=== PATIENT | female | born 1985 | race Caucasian/White ===

== ENCOUNTER 2017-11-17 02:50 | Emergency (ER) | payer OTHER ==
[~2017-11-17] VITALS: Ht 162.6 cm; Wt 59.0 kg
[~2017-11-17 02:50] MED LIST: CLONAZEPAM 1 MG1 M1; PERCOCET 5-3251 EACH PO; PROBIOTIC1 EACH; [UNRECOGNIZED DRUG - OTHER]
[2017-11-17 03:00] VITALS: BP 118/80
[2017-11-17] MEDS ORDERED: BACTRIM DS TAB1 EACH PO (03:34)
== END 2017-11-17 04:17 | disposition home or self-care (01) ==
LOC: ER 02:50
DX: L01.01 Non-bullous impetigo (principal); F17.210 Nicotine dependence, cigarettes, uncomplicated; Z88.0 Allergy status to penicillin